=== PATIENT | female | born 1970 | race Caucasian/White ===

== ENCOUNTER 2022-08-08 20:39 | Observation (INO) | payer OTHER, BC ==
[2022-08-08] MEDS ORDERED: Ipratropium/Albuterol 3 ML NEB NEB PRN (22:38)
[2022-08-08] MEDS ORDERED: TETANUS, DIPHTHERIA TOX,ADULT (TDVAX) 0.5 ML VIAL IM ONE (22:38)
[2022-08-08] MEDS ORDERED: Morphine 2 MG/ML VIAL SLOW IVP PRN (22:38)
[2022-08-08] MEDS ORDERED: traMADol HCl 50 MG TAB PO PRN (22:40)
[2022-08-08] MEDS ORDERED: Cyclobenzaprine 10 MG TAB PO PRN (22:40)
[2022-08-08] MEDS ORDERED: Sodium Chloride 0.9% 1,000 ML IV SCH (22:45)
[2022-08-08] MEDS ORDERED: Fentanyl 100 MCG/2 ML VIAL ONE (22:55)
[2022-08-08 22:57] LABS: #Basophils 0.1 thou/uL (0.0-0.2); #Lymphocytes 1.3 thou/uL (1.20-3.40); #Monocytes 0.3 thou/uL (0.11-0.59); %Basophils 0.5 % (0.0-1.0); %Eosinophils 0.2 % (0.0-10.0); %Lymphocytes 9.8 % (21.0-51.0); %Monocytes 2.5 % (0.0-10.0); %Neutrophils 86.9 % (42.0-75.0); Mean Corpuscular HGB CONC 34.3 g/dL (32.0-36.0); Mean Corpuscular Hemoglobin 30.4 pg (27.0-31.0); Mean Corpuscular Volume 88.8 fl (78.0-98.0); Mean Platelet Volume 7.5 fL (7.4-10.4); Platelet Count 307 10x3/uL (130-400); RBC Distribution Width 12.6 % (11.5-14.5); Red Blood Cell (RBC) Count 5.61 mill/uL (4.20-5.40); White Blood Cell (WBC) Count 12.7 10x3/uL (4.8-10.8)
[2022-08-08 23:18] LABS: Anion Gap 18 mmol/L (10-20); BUN (Urea Nitrogen) 17 mg/dL (9.8-20.1); Calc. Creatinine Clearance 0 mL/min (70-130); Calcium 9.4 mg/dL (7.8-10.44); Carbon Dioxide 19 mmol/L (22-29); Chloride 105 mmol/L (98-107); Estimated GFR 89; Glucose 120 mg/dL (70-105); Potassium 3.4 mmol/L (3.5-5.1); Sodium 139 mmol/L (136-145)
[2022-08-09] MEDS: Lactated Ringer's 1,000 ML IV SCH ×2 (01:25→08:59)
[2022-08-09] MEDS: traMADol HCl 50 MG TAB PO SCH ×3 (01:25→11:53)
[2022-08-09] MEDS: Acetaminophen 500 MG TAB PO SCH ×2 (01:25→07:05)
[2022-08-09 02:51] VITALS: BMI 44.6
[2022-08-09] MEDS: Morphine 4 MG/ML VIAL SLOW IVP PRN ×2 (02:54→06:00)
[2022-08-09 06:34] LABS: #Lymphocytes 2.1 thou/uL (1.20-3.40); #Monocytes 0.5 thou/uL (0.11-0.59); #Neutrophils 9.3 thou/uL (1.40-6.50); %Basophils 0.3 % (0.0-1.0); %Eosinophils 0.1 % (0.0-10.0); %Lymphocytes 17.1 % (21.0-51.0); %Monocytes 4.4 % (0.0-10.0); Hemoglobin 14.7 g/dL (12.0-16.0); Mean Corpuscular HGB CONC 33.7 g/dL (32.0-36.0); Mean Corpuscular Hemoglobin 29.6 pg (27.0-31.0); Mean Corpuscular Volume 88.1 fl (78.0-98.0); Mean Platelet Volume 7.8 fL (7.4-10.4); Platelet Count 332 10x3/uL (130-400); RBC Distribution Width 12.6 % (11.5-14.5); Red Blood Cell (RBC) Count 4.95 mill/uL (4.20-5.40)
[2022-08-09 06:43] LABS: PTT 26.7 sec (22.9-36.1); Prothrombin Time 13.8 sec (12.0-14.7)
[2022-08-09 06:50] LABS: Anion Gap 20 mmol/L (10-20); BUN (Urea Nitrogen) 12 mg/dL (9.8-20.1); Calc. Creatinine Clearance 193 mL/min (70-130); Calcium 8.7 mg/dL (7.8-10.44); Carbon Dioxide 17 mmol/L (22-29); Chloride 108 mmol/L (98-107); Estimated GFR 103; Glucose 122 mg/dL (70-105); Potassium 3.6 mmol/L (3.5-5.1); Sodium 141 mmol/L (136-145)
[2022-08-09] MEDS ORDERED: CEFAZOLIN 2 GM in Sodium Chloride 0.9% 100 ML IVPB SCH (07:45)
[2022-08-09] MEDS ORDERED: Ketorolac Tromethamine 30 MG/ML VIAL ONE (07:51)
[2022-08-09] MEDS ORDERED: fentaNYL PF 100 MCG/2 ML SYRINGE ONE (07:57)
[2022-08-09] MEDS ORDERED: HYDROmorphone 0.5 MG/0.5 ML SYRINGE ONE (07:58)
[2022-08-09] MEDS ORDERED: Midazolam HCl 2 mg/2 ml Vial ONE (08:05)
[2022-08-09] MEDS ORDERED: Lidocaine 1% PF 5 ML VIAL ONE (08:21)
[2022-08-09] MEDS ORDERED: Dexamethasone 20 MG/5 ML VIAL ONE (08:21)
[2022-08-09] MEDS ORDERED: PROPOFOL 200 MG/20 ML VIAL ONE (08:21)
[2022-08-09] MEDS ORDERED: Ondansetron PF 4 MG/2 ML Vial ONE (08:21)
[2022-08-09] MEDS ORDERED: Succinylcholine Chloride 100 MG/5 ML SYRINGE FS ONE (08:21)
[2022-08-09] MEDS ORDERED: PACU-Morphine 4MG/ML VIAL SLOW IVP PRN (08:59)
[2022-08-09] MEDS ORDERED: Ondansetron HCl/PF 4 MG/2 ML Vial IVP PRN (08:59)
[2022-08-09] MEDS ORDERED: HYDROmorphone 2 MG/ML VIAL SLOW IVP PRN (08:59)
[2022-08-09] MEDS ORDERED: Promethazine HCl 25 MG/ML VIAL IM PRN (08:59)
[2022-08-09] MEDS ORDERED: Senokot S 8.6-50 MG TAB PO SCH (09:00)
[2022-08-09] MEDS ORDERED: Famotidine/PF 20 mg/2ml Vial SLOW IVP SCH (09:00)
[2022-08-09] MEDS ORDERED: Polyethylene Glycol 3350 17 GM Packet PO SCH (09:00)
[2022-08-09 10:08] VITALS: BP 149/83; TEMP 98.1
== END 2022-08-09 13:40 | disposition home or self-care (01) ==
LOC: ERS 20:39 → SURG A 22:38
PROVIDERS: ADMIT Surgery; ATTEND Surgery
PROC: 0RSMXZZ Reposition Left Elbow Joint, External Approach (ICD-10-PCS; principal; 2022-08-09)
DX: S53.125A Posterior dislocation of left ulnohumeral joint, initial encounter (principal); S52.122A Displaced fracture of head of left radius, initial encounter for closed fracture; S01.511A Laceration without foreign body of lip, initial encounter; G89.11 Acute pain due to trauma; E66.9 Obesity, unspecified; Z68.41 Body mass index [BMI] 40.0-44.9, adult; Z79.899 Other long term (current) drug therapy; Z20.822 Contact with and (suspected) exposure to COVID-19; W01.0XXA Fall on same level from slipping, tripping and stumbling without subsequent striking against object, initial encounter
CPT/HCPCS: 29105; 36415; 70450; 80048; 83735; 84100; 85025; 85610; 85730; 96374; 96375; G0378; J1100; J1170; J1885; J2250; J2270; J2405; J2704; J3010; J7120; U0003; U0005

== ENCOUNTER 2022-08-14 11:30 | Day surgery (SDC) | payer BC ==
[2022-08-13 15:30] VITALS: BMI 47.0
[2022-08-14] MEDS ORDERED: fentaNYL PF 100 MCG/2 ML SYRINGE ONE ×2 (13:17→16:25)
[2022-08-14] MEDS ORDERED: Midazolam HCl 2 mg/2 ml Vial ONE ×2 (13:17→13:24)
[2022-08-14] MEDS ORDERED: Ondansetron PF 4 MG/2 ML Vial ONE (13:23)
[2022-08-14] MEDS ORDERED: Rocuronium Bromide 10 MG/ML (10ML VIAL) ONE (13:23)
[2022-08-14] MEDS ORDERED: Dexamethasone 20 MG/5 ML VIAL ONE (13:23)
[2022-08-14] MEDS ORDERED: PROPOFOL 200 MG/20 ML VIAL ONE (13:23)
[2022-08-14] MEDS ORDERED: CEFAZOLIN 2 GM VIAL ONE (13:24)
[2022-08-14] MEDS ORDERED: Fentanyl 100 MCG/2 ML VIAL ONE ×2 (13:24→17:34)
[2022-08-14] MEDS ORDERED: Sodium Chloride 0.9% 100 ML ONE (13:24)
[2022-08-14] MEDS ORDERED: Ropivacaine 0.5% HCl/PF (150 MG/30 ML VIAL) ONE (13:25)
[2022-08-14] MEDS ORDERED: Lidocaine 1% MPF 2 ML VIAL ONE (13:25)
[2022-08-14] MEDS ORDERED: Ketorolac Tromethamine 30 MG/ML VIAL ONE (18:01)
[2022-08-14] MEDS ORDERED: HYDROcodone/Acetaminophen 5/325 mg Tablet ONE (18:08)
== END 2022-08-14 18:55 | disposition home or self-care (01) ==
LOC: SDC 11:30
PROVIDERS: ATTEND Orthopaedic Surgery
PROC: 0PSJ04Z Reposition Left Radius with Internal Fixation Device, Open Approach (ICD-10-PCS; principal; 2022-08-14)
PROC: 0MQ40ZZ Repair Left Elbow Bursa and Ligament, Open Approach (ICD-10-PCS; principal; 2022-08-14)
PROC: 0LQ40ZZ Repair Left Upper Arm Tendon, Open Approach (ICD-10-PCS; principal; 2022-08-14)
DX: S52.122A Displaced fracture of head of left radius, initial encounter for closed fracture (principal); S53.442A Ulnar collateral ligament sprain of left elbow, initial encounter; S53.432A Radial collateral ligament sprain of left elbow, initial encounter; S52.042A Displaced fracture of coronoid process of left ulna, initial encounter for closed fracture; S56.212A Strain of other flexor muscle, fascia and tendon at forearm level, left arm, initial encounter; S56.512A Strain of other extensor muscle, fascia and tendon at forearm level, left arm, initial encounter; W01.0XXA Fall on same level from slipping, tripping and stumbling without subsequent striking against object, initial encounter
CPT/HCPCS: C1713; C1776; J1100; J1885; J2250; J2405; J2704; J2795; J3010; J3490

== ENCOUNTER 2025-05-19 07:52 | Outpatient (CLI) | payer BC | END 2025-05-19 07:53 | disposition home or self-care (01) | LOC: BICMAMMO 07:52 | DX: Z12.31 Encounter for screening mammogram for malignant neoplasm of breast (principal); Z80.3 Family history of malignant neoplasm of breast | CPT/HCPCS: 77063; 77067 ==